=== PATIENT | female | born 1995 | race Hispanic/Latino ===

== ENCOUNTER 2017-02-14 08:47 | Emergency (ER) | payer OTHER ==
[2017-02-14 08:57] VITALS: BP 153/95; PULSE 83; RESP 20; TEMP 98.4; O2SAT 98
[2017-02-14] MEDS ORDERED: Sodium Chloride 0.9% 1,000 ML IV STA (09:40)
--- NOTE | 2017-02-14 09:45 | ED PDOC ---
HPI:Nausea, Vomiting, Diarrhea Time Seen by Provider: 02/14/17 09:14 Chief Complaint (Nursing): GI Problem Chief Complaint (Provider): Vomiting History Per: Patient History/Exam Limitations: no limitations Onset/Duration Of Symptoms: Hrs Current Symptoms Are (Timing): Still Present Associated Symptoms: Fever. denies: Diarrhea, Constipation Additional Complaint(s): Sabina Kumari, a 21 year old female, presents to the ED for vomiting. The patient states that this morning she had 4 episodes of vomiting with little blood. Patient has subjective fever. Denies abdominal pain, constipation, diarrhea, symptoms. Abnormal Vaginal Bleeding: No Past Medical History Reviewed: Historical Data, Nursing Documentation, Vital Signs Vital Signs: Last Vital Signs Temp 98.4 F 02/14/17 08:56 Pulse 83 02/14/17 08:56 Resp 20 02/14/17 08:56 BP 153/95 H 02/14/17 08:56 Pulse Ox 98 02/14/17 08:56 - Medical History PMH: Anxiety, Depression - Surgical History Surgical History: Tonsillectomy - Family History Family History: States: Unknown Family Hx - Home Medications Home Medications: Ambulatory Orders Medication Instructions Recorded Famotidine [Pepcid] 20 mg PO BID #20 tab 02/14/17 Ondansetron ODT [Zofran ODT] 4 mg PO Q8H PRN #20 odt 02/14/17 Sertraline [Zoloft] 50 mg PO DAILY 02/14/17 buPROPion [Wellbutrin] 25 mg PO DAILY 02/14/17 - Allergies Allergies/Adverse Reactions: Allergies Allergy/AdvReac Type Severity Reaction Status Date / Time cefaclor [From [facility]] Allergy RASH Verified 02/14/17 09:23 Review of Systems ROS Statement: Except As Marked, All Systems Reviewed And Found Negative Constitutional: Positive for: Fever Gastrointestinal: Positive for: Vomiting (x4 episodes.). Negative for: Abdominal Pain, Diarrhea, Constipation Physical Exam - Reviewed Nursing Documentation Reviewed: Yes Vital Signs Reviewed: Yes - Physical Exam Appears: Positive for: Non-toxic, No Acute Distress Head Exam: Positive for: ATRAUMATIC, NORMAL INSPECTION, NORMOCEPHALIC Skin: Positive for: Normal Color, Warm, Dry Eye Exam: Positive for: Normal appearance, EOMI, PERRL ENT: Positive for: Normal ENT Inspection Neck: Positive for: Normal, Painless ROM, Supple Cardiovascular/Chest: Positive for: Regular Rate, Rhythm, Chest Non Tender. Negative for: Tachycardia Respiratory: Positive for: Normal Breath Sounds. Negative for: Wheezing, Respiratory Distress Gastrointestinal/Abdominal: Positive for: Normal Exam, Bowel Sounds, Soft. Negative for: Tenderness, Guarding, Rebound Back: Positive for: Normal Inspection Extremity: Positive for: Normal ROM. Negative for: Tenderness, Pedal Edema, Deformity, Swelling Neurologic/Psych: Positive for: Alert, Oriented, Gait - Laboratory Results Result Diagrams: 02/14/17 10:01 02/14/17 10:01 - ECG O2 Sat by Pulse Oximetry: 98 (RA) Pulse Ox Interpretation: Normal Medical Decision Making Medical Decision Makin:14 Initial Impression: 21 year old female presenting with vomiting Initial plan: * Comp metabolic panel * Lipase * Upreg * Udip * CBC * NS 1000 ml IV 1000mls.hr * Zofran 4mg IV * Urinalysis * reevaluation Scribe Attestation Documented by Ting Fernandez acting as a scribe for Elida Mcclelland MD. Provider Attestation: All medical record entries made by the Scribe were at my direction and personally dictated by me. I have reviewed the chart and agree that the record accurately reflects my personal performance of the history, physical exam, medical decision making, and the department course for this patient. I have also personally directed, reviewed, and agree with the discharge instructions and disposition. Disposition - Clinical Impression Clinical Impression: Hematemesis with nausea - Disposition Referrals: Keegan Henley MD [Staff Provider] - Disposition: Routine/Home Disposition Time: 12:03 Condition: STABLE Prescriptions: Famotidine [Pepcid] 20 mg PO BID #20 tab Ondansetron ODT [Zofran ODT] 4 mg PO Q8H PRN #20 odt PRN Reason: Nausea/Vomiting Instructions: Acute Nausea and Vomiting (ED)
[2017-02-14 10:09] LABS: BASO # 0.1 K/uL (0.0-0.2); BASO % 0.8 % (0.0-2.0); EOS # 0.1 K/uL (0.0-0.7); EOS % 1.2 % (0.0-4.0); HEMOGLOBIN 12.9 g/dL (12.0-16.0); LYMPH # 1.8 K/uL (1.0-4.3); LYMPH % 20.6 % (20.0-40.0); MEAN CELL VOLUME 81.1 fl (81.0-99.0); MEAN CORPUSCULAR HEMOGLOBIN 27.2 pg (27.0-31.0); MEAN CORPUSCULAR HGB CONC 33.6 g/dL (33.0-37.0); MEAN PLATELET VOLUME 7.6 fl (7.2-11.7); MONO # 0.7 K/uL (0.0-0.8); MONO % 8.1 % (0.0-10.0); NEUT # 6.1 K/uL (1.8-7.0); NEUT % 69.3 % (50.0-75.0); RBC 4.76 Mil/uL (3.80-5.20); RED CELL DISTRIBUTION WIDTH 13.6 % (11.5-14.5); SQUAMOUS EPITHIAL 1 /hpf (0-5); URINE BACTERIA RARE (<OCC); URINE BILIRUBIN NEGATIVE (NEGATIVE); URINE BLOOD MODERATE (NEGATIVE); URINE CLARITY CLEAR (Clear); URINE COLOR YELLOW (YELLOW); URINE GLUCOSE (UA) NEG (Normal); URINE LEUKOCYTE ESTERASE NEG Leu/uL (Negative); URINE NITRATE NEGATIVE (NEGATIVE); URINE PROTEIN NEGATIVE (NEGATIVE); URINE UROBILINOGEN 0.2-1.0 mg/dL (0.2-1.0); WHITE BLOOD COUNT 8.8 K/uL (4.8-10.8)
[2017-02-14 10:22] LABS: ALB/GLOB RATIO 1.2 (1.0-2.1); AST/SGOT 30 U/L (14-36); BLOOD UREA NITROGEN 13 mg/dl (7-17); GFR AFRICAN-AMERICAN > 60; GFR NON-AFRICAN AMERICAN > 60
[2017-02-14 10:23] LABS: ALT/SGPT 22 U/L (9-52); CALCIUM 9.1 mg/dL (8.4-10.2); LIPASE 26 U/L (23-300)
== END 2017-02-14 12:03 | disposition home or self-care (01) ==
LOC: H.ER 08:47
DX: K92.0 Hematemesis (principal); R11.0 Nausea

== ENCOUNTER 2017-03-10 09:08 | Emergency (ER) | payer OTHER ==
--- NOTE | 2017-03-10 09:27 | ED PDOC ---
HPI: Abdomen Time Seen by Provider: 03/10/17 09:21 Chief Complaint (Nursing): Abdominal Pain Additional Complaint(s): Patient reports 1 month history of isolated AM vomiting. She reports that she wakes up every morning nauseous and then has some relief with vomiting. She reports GI follow-up for endoscopy next Tuesday but she reports that she could not wait so she came in today. Denies abdominal pain. She reports that has been taking pepcid and zofran without relief. Past Medical History Vital Signs: Last Vital Signs Temp 99.0 F 03/10/17 09:12 Pulse 103 H 03/10/17 09:12 Resp 20 03/10/17 09:12 BP 145/75 03/10/17 09:12 Pulse Ox 99 03/10/17 13:46 - Medical History PMH: Anxiety, Depression - Surgical History Surgical History: Tonsillectomy - Family History Family History: States: Unknown Family Hx - Home Medications Home Medications: Ambulatory Orders Medication Instructions Recorded Famotidine [Pepcid] 20 mg PO BID #20 tab 02/14/17 Ondansetron ODT [Zofran ODT] 4 mg PO Q8H PRN #20 odt 02/14/17 Sertraline [Zoloft] 50 mg PO DAILY 02/14/17 buPROPion [Wellbutrin] 25 mg PO DAILY 02/14/17 Ciprofloxacin [Cipro] 500 mg PO BID #20 tab 03/10/17 Metronidazole [Flagyl] 500 mg PO TID #30 tab 03/10/17 - Allergies Allergies/Adverse Reactions: Allergies Allergy/AdvReac Type Severity Reaction Status Date / Time cefaclor [From [facility]] Allergy RASH Verified 03/10/17 09:17 Review of Systems Constitutional: Negative for: Fever, Chills Cardiovascular: Negative for: Chest Pain, Palpitations, Edema, Light Headedness Respiratory: Negative for: Cough, Shortness of Breath, SOB with Exertion, Wheezing Gastrointestinal: Positive for: Nausea, Vomiting. Negative for: Abdominal Pain , Diarrhea, Constipation Genitourinary Female: Negative for: Dysuria, Frequency, Incontinence, Hematuria , Vaginal Discharge, Vaginal Bleeding, Pelvic Pain Musculoskeletal: Negative for: Neck Pain Psych: Positive for: Depression (currently under treatment). Negative for: Anxiety, Psychosis, Suicidal ideation Physical Exam - Physical Exam Appears: Positive for: Well, Non-toxic (moist mucus membranes) Head Exam: Positive for: ATRAUMATIC, NORMAL INSPECTION, NORMOCEPHALIC Eye Exam: Positive for: EOMI, Normal appearance, PERRL Neck: Positive for: Normal, Painless ROM, Supple Cardiovascular/Chest: Positive for: Regular Rate, Rhythm Respiratory: Positive for: Normal Breath Sounds. Negative for: Rhonchi, Stridor , Wheezing Gastrointestinal/Abdominal: Positive for: Soft. Negative for: Tenderness, Mass , Distended Back: Positive for: Normal Inspection Extremity: Positive for: Normal ROM Neurologic/Psych: Positive for: Alert, Oriented, Gait (steady) - Laboratory Results Result Diagrams: 03/10/17 09:51 03/10/17 09:51 - ECG O2 Sat by Pulse Oximetry: 99 Medical Decision Making Medical Decision Making: Labs WNL. Preg negative. Patient has what appears to be cyclic vomiting. CT shows "Mild circumferential mural thickening limited to the transverse colon which may reflect a nonspecific colitis. Please correlate. No other significant abnormality is identified." Patient is tolerating po in the ED and reports that she feels better. Her heart rate has improved to 86 and is afebrile. She continues to have soft NT/ND abdomen. Due to her persistent daily vomiting and above CT results, will dc with cipro and flagyl. Encourage patient again on the importance of GI follow-up for endoscopy and further evaluation. Disposition - Clinical Impression Clinical Impression: Colitis, Cyclical vomiting - Disposition Disposition: Routine/Home Disposition Time: 13:45 Condition: GOOD Additional Instructions: Follow up with GI as previously scheduled. Take full course of antibiotics. Return to ED if condition worsens. Prescriptions: Ciprofloxacin [Cipro] 500 mg PO BID #20 tab Metronidazole [Flagyl] 500 mg PO TID #30 tab Instructions: Colitis (ED)
[2017-03-10] MEDS ORDERED: Sodium Chloride 0.9% 1,000 ML IV SCH (09:30)
[2017-03-10 09:57] LABS: BASO # 0.1 K/uL (0.0-0.2); EOS # 0.1 K/uL (0.0-0.7); EOS % 1.3 % (0.0-4.0); LYMPH # 1.8 K/uL (1.0-4.3); LYMPH % 27.2 % (20.0-40.0); MEAN CELL VOLUME 81.3 fl (81.0-99.0); MEAN CORPUSCULAR HEMOGLOBIN 27.4 pg (27.0-31.0); MEAN CORPUSCULAR HGB CONC 33.7 g/dL (33.0-37.0); MEAN PLATELET VOLUME 7.5 fl (7.2-11.7); MONO # 0.6 K/uL (0.0-0.8); NEUT % 61.5 % (50.0-75.0); RBC 4.75 Mil/uL (3.80-5.20); RED CELL DISTRIBUTION WIDTH 13.7 % (11.5-14.5); WHITE BLOOD COUNT 6.5 K/uL (4.8-10.8)
[2017-03-10] MEDS ORDERED: Sodium Chloride 0.9% 50 ML IV ONE (10:02)
[2017-03-10] MEDS ORDERED: Iohexol 300 100 ML IJ ONE (10:02)
[2017-03-10 10:08] LABS: ALB/GLOB RATIO 1.4 (1.0-2.1); ALBUMIN 4.3 g/dL (3.5-5.0); ALT/SGPT 37 U/L (9-52); AST/SGOT 22 U/L (14-36); BLOOD UREA NITROGEN 13 mg/dl (7-17); CALCIUM 9.3 mg/dL (8.4-10.2); GFR AFRICAN-AMERICAN > 60; GFR NON-AFRICAN AMERICAN > 60; LIPASE 24 U/L (23-300); MAGNESIUM 1.8 MG/DL (1.6-2.3)
[2017-03-10 10:55] LABS: SQUAMOUS EPITHIAL 1 /hpf (0-5); URINE BACTERIA RARE (<OCC); URINE BILIRUBIN NEGATIVE (NEGATIVE); URINE BLOOD MODERATE (NEGATIVE); URINE CLARITY SLIGHTY-CLOUDY (Clear); URINE COLOR YELLOW (YELLOW); URINE GLUCOSE (UA) NEG (Normal); URINE LEUKOCYTE ESTERASE NEG Leu/uL (Negative); URINE NITRATE NEGATIVE (NEGATIVE); URINE PROTEIN NEGATIVE (NEGATIVE); URINE UROBILINOGEN 0.2-1.0 mg/dL (0.2-1.0)
--- NOTE | 2017-03-10 12:13 | CT ---
PROCEDURE: CT Abdomen and Pelvis with contrast HISTORY: persistent vomiting COMPARISON: None. TECHNIQUE: Contrast dose: 95 mL Omnipaque 300 Radiation dose: Total exam DLP = 798.88 mGy-cm. This CT exam was performed using one or more of the following dose reduction techniques: Automated exposure control, adjustment of the mA and/or kV according to patient size, and/or use of iterative reconstruction technique. FINDINGS: LOWER THORAX: Unremarkable. LIVER: Unremarkable. No gross lesion or ductal dilatation. GALLBLADDER AND BILE DUCTS: Unremarkable. PANCREAS: Unremarkable. No gross lesion or ductal dilatation. SPLEEN: Unremarkable. ADRENALS: Unremarkable. No mass. KIDNEYS AND URETERS: Unremarkable. No hydronephrosis. No solid mass. VASCULATURE: Unremarkable. No aortic aneurysm. BOWEL: There is mild circumferential mural thickening of the transverse colon common nonspecific. This may represent a colitis limited to the transverse colon. The remainder of the colon is unremarkable. There is no bowel obstruction. There are no other abnormal bowel loops. APPENDIX: Normal appendix. PERITONEUM: Unremarkable. No free fluid. No free air. LYMPH NODES: Unremarkable. No enlarged lymph nodes. BLADDER: Unremarkable. REPRODUCTIVE: Normal uterus and ovaries BONES: No acute fracture. OTHER FINDINGS: None. IMPRESSION: Mild circumferential mural thickening limited to the transverse colon which may reflect a nonspecific colitis. Please correlate. No other significant abnormality is identified.
[2017-03-10 14:22] VITALS: BP 119/82; PULSE 86; RESP 16; TEMP 98.7; O2SAT 97
== END 2017-03-10 13:40 | disposition home or self-care (01) ==
LOC: H.ER 09:08
DX: K52.9 Noninfective gastroenteritis and colitis, unspecified (principal); R11.0 Nausea; F32.9 Major depressive disorder, single episode, unspecified; F41.9 Anxiety disorder, unspecified